=== PATIENT | male | born 1980 | race American Indian/Alaskan Native ===

== ENCOUNTER 2018-06-05 19:36 | Emergency (ER) | payer SELFPAY ==
--- NOTE | 2018-06-05 19:39 | ED PDOC ---
Arrival/HPI - General Time Seen by Provider: 06/05/18 19:39 Historian: Patient - History of Present Illness Narrative History of Present Illness (Text): 06/05/18 19:39 37 y/o male, no significant pmh, penicillin allergy, c/o painful lump on the left sided facial region on and off x 2 weeks. Pt. stated that it started off as a small pimple, been growing for the past 2 days, started to oozing, no fever or chills, no night sweat, no dizziness, no headache, no neck pain, no facial swelling, no palpitation, no other medical or psychological complaints. Past Medical History - Provider Review Nursing Documentation Reviewed: Yes Family/Social History - Physician Review Nursing Documentation Reviewed: Yes Family/Social History: Unknown Family HX Allergies/Home Meds Allergies/Adverse Reactions: Allergies Penicillins Allergy (Verified 06/05/18 19:43) RASH Review of Systems - Review of Systems Constitutional: absent: Fatigue, Fevers Eyes: absent: Vision Changes ENT: absent: Hearing Changes Respiratory: absent: SOB, Cough Cardiovascular: absent: Chest Pain Gastrointestinal: absent: Abdominal Pain, Nausea, Vomiting Skin: Skin Lesions, Abscess. absent: Rash, Pruritis, Laceration, Ulcer, Cellulitis Neurological: absent: Headache, Dizziness Psychiatric: absent: Anxiety, Depression, Suicidal Ideation Physical Exam Vital Signs Reviewed: Yes Temperature: Afebrile Blood Pressure: Normal Pulse: Regular Respiratory Rate: Normal Appearance: Positive for: Well-Appearing, Non-Toxic, Comfortable Pain Distress: Moderate Mental Status: Positive for: Alert and Oriented X 3 - Systems Exam Head: Present: Atraumatic, Normocephalic Pupils: Present: PERRL Extroacular Muscles: Present: EOMI Conjunctiva: Present: Normal Mouth: Present: Moist Mucous Membranes Neck: Present: Normal Range of Motion Respiratory/Chest: Present: Clear to Auscultation, Good Air Exchange. No: Respiratory Distress, Accessory Muscle Use Cardiovascular: Present: Regular Rate and Rhythm, Normal S1, S2. No: Murmurs Abdomen: No: Tenderness, Distention, Peritoneal Signs Back: Present: Normal Inspection Upper Extremity: Present: Normal Inspection. No: Cyanosis, Edema Lower Extremity: Present: Normal Inspection. No: Edema Neurological: Present: GCS=15, CN II-XII Intact, Speech Normal Skin: Present: Warm, Dry, Rashes (lt. sided facial region visible approx. [id number] fluctuant abscess with no cellulitis or streaking, no ulcers, abscess region is outside of the triangle region, no regional lymphenapathy. ), Normal Color Psychiatric: Present: Alert, Oriented x 3, Normal Insight, Normal Concentration Medical Decision Making ED Course and Treatment: 06/05/18 19:58 -cleocin/motrin -will I&D 06/05/18 20:03 Procedure: Incision & Drainage Performed by the emergency provider Indication: Abscess Location: lt. sided facial region Preparation: The area was prepped and draped in the usual sterile fashion and was cleansed with normal saline 1000cc. Local infiltration of Lidocaine 1% with 0.5cc was used for anesthesia. Procedure: The most fluctuant portion of the abscess was incised with a #11 scalpel approx. 0.5cm. Approximately 2 mL of purulant abscess drained, irrigated with 20cc of saline, no wound culture was obtained. The abscess was packed 1/4" iodofoam. A dressing was applied by sc with gauze and tape. Post-Procedure: On exam the abscess is notably fluctuancy resolved but there is small empty pouch skin noted with abscess resolved. The patient tolerated the procedure well, and there were no complications. Total procedure 20 minutes Cultured: NO, empiric treatment. 06/05/18 20:25 -pt. feels much better, advised to return to the ER in 2 days or general surgeon/siding mechanic for wound check/packing change. -Discharge home with cleocin, motrin, keep the dressing dry and clean, return to the ER in 2 days for wound check and packing change, follow up with your own pmd and general surgeon within 3 days, return to the ER for any new or worsening signs or symptoms. - PA / SEWAGE SCREEN OPERATOR / Resident Statement /DO has reviewed & agrees with the documentation as recorded. Disposition/Present on Arrival - Present on Arrival Any Indicators Present on Arrival: No History of DVT/PE: No History of Uncontrolled Diabetes: No Urinary Catheter: No History of Decub. Ulcer: No - Disposition Have Diagnosis and Disposition been Completed?: Yes Diagnosis: Acute abscess of face Disposition: HOME/ ROUTINE Disposition Time: 19:59 Patient Plan: Discharge Patient Problems: Current Active Problems Problem Status Onset Acute abscess of face Acute Condition: GOOD Additional Instructions: -Discharge home with cleocin, motrin, keep the dressing dry and clean, return to the ER in 2 days for wound check and packing change, follow up with your own pmd and general surgeon within 3 days, return to the ER for any new or worsening signs or symptoms. Prescriptions: Clindamycin [Cleocin] 300 mg PO QID PRN #40 cap PRN Reason: Other Ibuprofen [Motrin Tab] 600 mg PO QID PRN #30 tab PRN Reason: Other Referrals: Urmila Schilling MD [Staff Provider] - Follow up with primary Jesus Amaya MD [Staff Provider] - Follow up with primary [facility] at [facility] [place] [Outside] - Follow up with primary Forms: WORK NOTE
[2018-06-05] MEDS ORDERED: Lidocaine 1% 5ml Abboject IJ STA (19:55)
[2018-06-05 21:38] VITALS: BP 121/72; PULSE 72; RESP 18; TEMP 98.7; O2SAT 96
== END 2018-06-05 20:39 | disposition home or self-care (01) ==
LOC: ED 19:36
DX: L02.01 Cutaneous abscess of face (principal)

== ENCOUNTER 2018-06-07 15:42 | Emergency (ER) | payer OTHER ==
--- NOTE | 2018-06-07 16:36 | ED PDOC ---
Arrival/HPI - General Time Seen by Provider: 06/07/18 15:44 Historian: Patient - History of Present Illness Narrative History of Present Illness (Text): 06/07/18 16:32 37 y/o male, pmh including facial abscess, on the cleocin, here for the wound check s/p I&D by me about 3 days ago (which i told him to come back in 2 days with keeping the wound dry and clean) which he stated that he feels better except he removed the packing and dressing 2 days ago by himself without seeing by any medical professional. Pt. stated that he is back for wound check and packing change, no fever or chills, swelling is much better than 3 days ago, no night sweat, no change in hearing. Past Medical History - Provider Review Nursing Documentation Reviewed: Yes - Cardiac Hx Cardiac Disorders: No - Pulmonary Hx Respiratory Disorders: No - Neurological Hx Neurological Disorder: No - HEENT Hx HEENT Disorder: No - Renal Hx Renal Disorder: No - Endocrine/Metabolic Hx Endocrine Disorders: No - Hematological/Oncological Hx Blood Disorders: No - Integumentary Hx Dermatological Disorder: Yes Other/Comment: ABSCESS - Musculoskeletal/Rheumatological Hx Musculoskeletal Disorders: No - Gastrointestinal Hx Gastrointestinal Disorders: No - Genitourinary/Gynecological Hx Genitourinary Disorders: No - Psychiatric Hx Psychophysiologic Disorder: Yes Hx Schizophrenia: Yes Hx Substance Use: No - Surgical History Other/Comment: SKIN R/T ABSCESS Family/Social History - Physician Review Nursing Documentation Reviewed: Yes Family/Social History: Unknown Family HX Smoking Status: Heavy Smoker > 10 Cigarettes Daily Hx Alcohol Use: Yes Hx Substance Use: No Allergies/Home Meds Allergies/Adverse Reactions: Allergies Penicillins Allergy (Verified 06/05/18 19:43) RASH Review of Systems - Review of Systems Constitutional: absent: Fatigue, Fevers Eyes: absent: Vision Changes ENT: absent: Hearing Changes Respiratory: absent: SOB, Cough Cardiovascular: absent: Chest Pain Gastrointestinal: absent: Abdominal Pain, Nausea, Vomiting Musculoskeletal: absent: Arthralgias, Back Pain Skin: Skin Lesions, Abscess. absent: Rash, Pruritis, Laceration, Ulcer, Cellulitis Neurological: absent: Headache, Dizziness Psychiatric: absent: Anxiety, Depression, Suicidal Ideation Physical Exam Vital Signs Reviewed: Yes Temperature: Afebrile Blood Pressure: Normal Pulse: Regular Respiratory Rate: Normal Appearance: Positive for: Well-Appearing, Non-Toxic, Comfortable Pain Distress: Mild Mental Status: Positive for: Alert and Oriented X 3 - Systems Exam Head: Present: Atraumatic, Normocephalic Pupils: Present: PERRL Extroacular Muscles: Present: EOMI Conjunctiva: Present: Normal Mouth: Present: Moist Mucous Membranes Neck: Present: Normal Range of Motion Respiratory/Chest: Present: Clear to Auscultation, Good Air Exchange. No: Respiratory Distress, Accessory Muscle Use Cardiovascular: Present: Regular Rate and Rhythm, Normal S1, S2. No: Murmurs Abdomen: No: Tenderness, Distention, Peritoneal Signs Back: Present: Normal Inspection Upper Extremity: Present: Normal Inspection. No: Cyanosis, Edema Lower Extremity: Present: Normal Inspection. No: Edema Neurological: Present: GCS=15, CN II-XII Intact, Speech Normal, Motor Func Grossly Intact, Gait Normal, Memory Normal Skin: Present: Warm, Dry, Rashes (Lt. facial wound with abscess incision wound noted and the packing is missing, no facial cellulitis or streaking but there is a new abscess approx. 1cm diameter fluctuant abscess noted, the initial incision site is closed which causing more drainage, no regional lymphenapathy. ), Normal Color Psychiatric: Present: Alert, Oriented x 3, Normal Insight, Normal Concentration Medical Decision Making ED Course and Treatment: 06/07/18 16:44 -Pt. remove the dressing too early including packing, causing the incision site failure to drain, will I&D the new onset of abscess less than 1cm diameter. Procedure: Incision & Drainage Performed by the emergency provider Indication: Abscess Location: lt. facial Preparation: The area was prepped and draped in the usual sterile fashion and was cleansed with . Local infiltration of Lidocaine 1% without Epi 0.5cc was used for anesthesia. Procedure: The most fluctuant portion of the abscess was incised with a #11 scalpel. Approximately 1 mL of abscess was obtained. The abscess was packed 1/4 iodofoam. A dressing was applied by the RN. Post-Procedure: On exam the abscess is notably abscess resolvedt. The patient tolerated the procedure well, and there were no complications. Cultured: { NO} 06/07/18 17:16 -Pt. feels much better, will discharge home. -Discharge home with education on continue the cleocin at home, return to the Er for wound check and packing change in 2 days or go see the pmd/turret lathe tender/mechanical manufacturing engineer in 2 days, keep the dressing dry and clean for 2 days, return to the ER for any new or worsening signs or symptoms. - PA / FORK ASSEMBLER / Resident Statement MD/DO has reviewed & agrees with the documentation as recorded. Disposition/Present on Arrival - Present on Arrival Any Indicators Present on Arrival: No History of DVT/PE: No History of Uncontrolled Diabetes: No Urinary Catheter: No History of Decub. Ulcer: No History Surgical Site Infection Following: None - Disposition Have Diagnosis and Disposition been Completed?: Yes Diagnosis: Facial abscess, Wound check, abscess Disposition: HOME/ ROUTINE Disposition Time: 17:18 Patient Plan: Discharge Condition: GOOD Additional Instructions: -Discharge home with education on continue the cleocin at home, return to the Er for wound check and packing change in 2 days or go see the pmd/turret lathe tender/mechanical manufacturing engineer in 2 days, keep the dressing dry and clean for 2 days, return to the ER for any new or worsening signs or symptoms. Referrals: Jesus Bran MD [Staff Provider] - Follow up with primary Umair Braxton MD [Medical Doctor] - Follow up with primary at [facility] [Outside] - Follow up with primary Forms: WORK NOTE
[2018-06-07 16:39] VITALS: RESP 18; TEMP 98; O2SAT 98
[2018-06-07 17:48] VITALS: BP 122/76; PULSE 78
== END 2018-06-07 17:10 | disposition home or self-care (01) ==
LOC: ED 15:42
DX: L02.01 Cutaneous abscess of face (principal)

== ENCOUNTER 2018-09-16 19:06 | Emergency (ER) | payer SELFPAY ==
[2018-09-16 19:24] VITALS: BMI 25.0
[2018-09-16 19:28] VITALS: RESP 18; TEMP 98.6
--- NOTE | 2018-09-16 20:33 | ED PDOC ---
Arrival/HPI - General Chief Complaint: Abnormal Skin Integrity Time Seen by Provider: 09/16/18 19:15 Historian: Patient - History of Present Illness Narrative History of Present Illness (Text): 09/16/18 20:33 A 37 year old male presents to the emergency department complaining of abscess to posterior scalp since last night. Patient reports placing creams, baking soda, and hydrogen peroxide to abscess, however has had no relief. Mentions having surgery to area on scalp, performed some time ago, however did not state what the surgery was for. Patient denies any fever, or any other complaints at this time. No PMD Time/Duration: 24 hours (last night) Past Medical History - Provider Review Nursing Documentation Reviewed: Yes - Infectious Disease Hx of Infectious Diseases: None - Cardiac Hx Cardiac Disorders: No - Pulmonary Hx Respiratory Disorders: No - Neurological Hx Neurological Disorder: No - HEENT Hx HEENT Disorder: No - Renal Hx Renal Disorder: No - Endocrine/Metabolic Hx Endocrine Disorders: No - Hematological/Oncological Hx Blood Disorders: No - Integumentary Hx Dermatological Disorder: Yes Other/Comment: ABSCESS - Musculoskeletal/Rheumatological Hx Musculoskeletal Disorders: No - Gastrointestinal Hx Gastrointestinal Disorders: No - Genitourinary/Gynecological Hx Genitourinary Disorders: No - Psychiatric Hx Psychophysiologic Disorder: Yes Hx Schizophrenia: Yes Hx Substance Use: No - Surgical History Other/Comment: SKIN R/T ABSCESS - Anesthesia Hx Anesthesia: No Family/Social History - Physician Review Nursing Documentation Reviewed: Yes Family/Social History: No Known Family HX Smoking Status: Heavy Smoker > 10 Cigarettes Daily Hx Alcohol Use: Yes Hx Substance Use: No Allergies/Home Meds Allergies/Adverse Reactions: Allergies Penicillins Allergy (Verified 06/05/18 19:43) RASH Review of Systems - Physician Review All systems were reviewed & negative as marked: Yes - Review of Systems Constitutional: absent: Fevers, Other (no head trauma/injuries.) Skin: Abscess (abscess to posterior scalp bilaterally) Physical Exam - Physical Exam Narrative Physical Exam (Text): Gen: VS reviewed, alert, well developed, well nourished, nontoxic, mild distress. ENT: normal pharynx. Eye: EOMI, PERRL. Neck: no JVD, supple, no adenopathy. CV: regular rate, regular rhythm, no rubs, no murmur, no gallops, S1, S2, pulses equal and strong. Pulm: no distress, clear to auscultation, no wheeze, no rhonchi, breath sounds equal, no rales. Abd: soft, nontender, no guarding, no rebound, no rigidity, normal bowel sounds. Ext: no edema. Skin: multiple fluctuating tender lesions to posterior scalp bilaterally, no active drainage. Psych: responds appropriately to questions, normal affect. Neuro: oriented x 3, CN2-12 intact grossly, motor intact, sensation intact. Vital Signs Reviewed: Yes Vital Signs Temp Pulse Resp Pulse Ox 09/16/18 19:25 98.6 F 88 18 99 Temperature: Afebrile Pulse: Regular Respiratory Rate: Normal Appearance: Positive for: Well-Appearing, Non-Toxic, Comfortable Pain Distress: None Mental Status: Positive for: Alert and Oriented X 3 Medical Decision Making ED Course and Treatment: 09/16/18 20:35 Impression: 37 year old male with abscess to back of scalp. Plan: -- Reassess and disposition Progress Notes: 09/16/18 21:25 certified surgical first assistant at bedside for scalp lesion management 09/16/18 21:50 multiple lesions were drained by the certified surgical first assistant, outpt follow up recommended with po abx. patient ok for dc. - Scribe Statement The provider has reviewed the documentation as recorded by the Rios Oliva Provider Scribe Attestation: All medical record entries made by the Maguiibpatricia were at my direction and personally dictated by me. I have reviewed the chart and agree that the record accurately reflects my personal performance of the history, physical exam, medical decision making, and the department course for this patient. I have also personally directed, reviewed, and agree with the discharge instructions and disposition. Disposition/Present on Arrival - Present on Arrival Any Indicators Present on Arrival: No History of DVT/PE: No History of Uncontrolled Diabetes: No Urinary Catheter: No History of Decub. Ulcer: No History Surgical Site Infection Following: None - Disposition Have Diagnosis and Disposition been Completed?: Yes Diagnosis: Scalp abscess Disposition: HOME/ ROUTINE Disposition Time: 21:51 Patient Plan: Discharge Condition: STABLE Discharge Instructions (ExitCare): Skin Abscess Prescriptions: Clindamycin [Cleocin] 300 mg PO QID 7 Days #28 cap Referrals: PCP,NO [Primary Care Provider] - [facility] with [facility] [Outside] - Follow up with primary [facility] at [facility] [place] [Outside] - Follow up with primary Forms: Room Choice (Libyan)
[2018-09-16] MEDS ORDERED: Lidocaine 1%/Epinephrine 1:100000 30 ml vial IJ ONE (20:40)
[2018-09-16] MEDS ORDERED: HYDROmorphone 0.5 mg/0.5 ml ISec IM STA (20:40)
[2018-09-16] MEDS ORDERED: Morphine 4 mg/ml ISec IM STA (20:47)
--- NOTE | 2018-09-16 21:57 | PCM.PROC ---
Incision and Drainage - Time Time Performed: 21:54 - Time Out Time Out: Side verified, Site verified, Patient ID confirmed, Sterile procedures obs. - Procedure Procedure-Incision & Drainage: of the posterior scalp - Consent obtained Consent obtained: Verbal - Performed by Performed by: Mid-level Provider - Indications Indications: Cutaneous abscess - Contraindications Contraindications: None - Location Location: Right, Left, Superior, Inferior, Skin abscess - Dimensions Dimensions Length cm: L superior [id number], L middle [id number], L lower [id number] Dimensions width cm: R lower [id number] - Anesthetic Technique Anesthetic Technique: Local - Anesthetic Anesthetic: Lidocaine 1% w/epi - Systemic Analgesia Systemic Analgesia: Morphine - Procedure Procedure: Usual prep and drape, Ultrasound guidance util., # scalpel used - Drained Drained: ml pus (20) - Complications Complications: None
[2018-09-16 21:59] VITALS: BP 114/62; PULSE 82; O2SAT 100
== END 2018-09-16 21:58 | disposition home or self-care (01) ==
LOC: ED 19:06
DX: L02.811 Cutaneous abscess of head [any part, except face] (principal); F17.210 Nicotine dependence, cigarettes, uncomplicated; F20.9 Schizophrenia, unspecified
CPT/HCPCS: 10060; 96372; 99282; J2270

== ENCOUNTER 2018-11-07 21:48 | Emergency (ER) | payer SELFPAY ==
[2018-11-07 21:48] VITALS: BMI 25.0
[2018-11-07 22:05] VITALS: TEMP 98.2
[2018-11-07 22:12] LABS: BASO # 0.05 K/mm3 (0.0-2.0); BASO % 0.6 % (0.0-3.0); EOS # 0.3 (0.0-0.7); EOS % 4.1 % (1.5-5.0); HEMOGLOBIN 13.6 g/dL (14.0-18.0); LYMPH # 2.9 (1.2-3.4); LYMPH % 34.5 % (22.0-35.0); MEAN CELL VOLUME 90.1 fl (80.0-105.0); MEAN CORPUSCULAR HGB CONC 33.3 g/dl (31.0-37.0); MONO # 0.4 (0.1-0.6); MONO % 4.6 % (1.0-6.0); RBC 4.54 10^6/uL (3.5-6.1); RED CELL DISTRIBUTION WIDTH 13.2 % (11.5-14.5); WHITE BLOOD COUNT 8.4 10^3/uL (4.5-11.0)
--- NOTE | 2018-11-07 22:13 | ED PDOC ---
Arrival/HPI - General Chief Complaint: Chest Pain Time Seen by Provider: 11/07/18 21:51 Historian: Patient - History of Present Illness Narrative History of Present Illness (Text): 11/07/18 21:51 Mariel Ortez is a 37 year old male smoker, with a past medical history of alcohol abuse, major depressive disorder, PTSD, schizophrenia, who presents to the emergency department complaining of right sided chest pain that radiates into the right shoulder intermittently for 1 month. Patient states pain began today after putting his dishes away from a meal. Patient describes pain as tightness, sharpness. and as a "muscle pain". Patient notes pain is worsened with cough and breathing. Patient admits to drinking alcohol for pain with no improvement. Patient informs taking Tylenol two days ago with some improvement. Patient informs taking Zyprexa for anxiety. 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 Patient denies any cardiac fhx or past medical history of hypertension. Patient denies fevers, chills, headache, dizziness, shortness of breath, dyspnea on exertion, cough, abdominal pain, nausea, vomiting, diarrhea, back pain, neck pain, or any other complaint. Time/Duration: < month Symptom Course: Intermittent Quality: Tightness, Stabbing (Sharp) Activities at Onset: Light Context: Home Past Medical History - Provider Review Nursing Documentation Reviewed: Yes - Infectious Disease Hx of Infectious Diseases: None - Cardiac Hx Cardiac Disorders: No - Pulmonary Hx Respiratory Disorders: No - Neurological Hx Neurological Disorder: No - HEENT Hx HEENT Disorder: No - Renal Hx Renal Disorder: No - Endocrine/Metabolic Hx Endocrine Disorders: No - Hematological/Oncological Hx Blood Disorders: No - Integumentary Hx Dermatological Disorder: Yes Other/Comment: ABSCESS - Musculoskeletal/Rheumatological Hx Falls: No - Gastrointestinal Hx Gastrointestinal Disorders: No - Genitourinary/Gynecological Hx Genitourinary Disorders: No - Psychiatric Hx Anxiety: Yes Hx Depression: Yes Hx Post Traumatic Stress Disorder: Yes Hx Schizophrenia: Yes Hx Substance Use: Yes - Surgical History Other/Comment: SKIN R/T ABSCESS - Anesthesia Hx Anesthesia: Yes Hx Anesthesia Reactions: No Family/Social History - Physician Review Nursing Documentation Reviewed: Yes Family/Social History: No Known Family HX. denies: CAD/[place] Smoking Status: Heavy Smoker > 10 Cigarettes Daily Hx Alcohol Use: Yes Hx Substance Use: Yes Allergies/Home Meds Allergies/Adverse Reactions: Allergies Penicillins Allergy (Verified 11/07/18 21:55) RASH Home Medications: Home Meds Medication Instructions Recorded Confirmed Olanzapine [Zyprexa] 20 mg PO DAILY 10/26/18 11/07/18 Review of Systems - Physician Review All systems were reviewed & negative as marked: Yes - Review of Systems Constitutional: absent: Fevers, Night Sweats Respiratory: absent: SOB, Cough Cardiovascular: Chest Pain. absent: DUMONT Gastrointestinal: absent: Abdominal Pain, Diarrhea, Nausea, Vomiting Musculoskeletal: Myalgias (right shoulder pain). absent: Back Pain, Neck Pain Neurological: absent: Headache, Dizziness (right sided chest pain radiating to right shoulder) Physical Exam Vital Signs Reviewed: Yes Vital Signs Temp Pulse Resp BP Pulse Ox 11/07/18 21:56 98.2 F 89 18 127/75 98 Temperature: Afebrile Blood Pressure: Normal Pulse: Regular Respiratory Rate: Normal Appearance: Positive for: Well-Appearing, Non-Toxic, Comfortable Pain Distress: None Mental Status: Positive for: Alert and Oriented X 3 - Systems Exam Head: Present: Atraumatic, Normocephalic Pupils: Present: PERRL Extroacular Muscles: Present: EOMI Conjunctiva: Present: Normal Mouth: Present: Moist Mucous Membranes Neck: Present: Normal Range of Motion Respiratory/Chest: Present: Clear to Auscultation, Good Air Exchange. No: Respiratory Distress, Accessory Muscle Use, Tender to Palpation (No tenderness to palpation of anterior chest wall) Cardiovascular: Present: Regular Rate and Rhythm, Normal S1, S2. No: Murmurs Abdomen: No: Tenderness, Distention, Peritoneal Signs Breast/Axillary: Present: Tender to Palpation (Slight tenderness to palpation to right axilla) Back: Present: Normal Inspection Upper Extremity: Present: Normal Inspection, Normal ROM (Patient able to abduct beyond 90 degrees). No: Cyanosis, Edema Lower Extremity: Present: Normal Inspection. No: Edema Neurological: Present: GCS=15, CN II-XII Intact, Speech Normal Skin: Present: Warm, Dry, Normal Color. No: Rashes Psychiatric: Present: Alert, Oriented x 3, Normal Insight, Normal Concentration Medical Decision Making ED Course and Treatment: 11/07/18 21:51 Impression: Patient is a 37 year old male with no cardiac family history who presents to the Emergency department complaining of right sided chest pain radiating to the right shoulder. Differential Diagnosis included but are not limited to: Plan: -- Labs -- Toradol -- Reassess and disposition Prior Visits: Notes and results from previous visits were reviewed. Progress Notes: - RAD Interpretation Narrative RAD Interpretations (Text): 11/07/18 23:31 Reviewed Chest X-Ray: Normal. No focal consolidations or focal infiltrates. Prominent vascular markings noted. Calculation Clerk: ED Physician - Medication Orders Current Medication Orders: Discontinued Medications Ketorolac Tromethamine (Toradol) 60 mg IM STAT STA Stop: 11/07/18 22:04 Ketorolac Tromethamine (Toradol) 30 mg IVP STAT STA Stop: 11/07/18 22:04 - Scribe Statement The provider has reviewed the documentation as recorded by the Scribe Gurwinder Barrera All medical record entries made by the Scribe were at my direction and personally dictated by me. I have reviewed the chart and agree that the record accurately reflects my personal performance of the history, physical exam, medical decision making, and the department course for this patient. I have also personally directed, reviewed, and agree with the discharge instructions and disposition. Disposition/Present on Arrival - Present on Arrival Any Indicators Present on Arrival: No History of DVT/PE: No History of Uncontrolled Diabetes: No Urinary Catheter: No History of Decub. Ulcer: No History Surgical Site Infection Following: None - Disposition Have Diagnosis and Disposition been Completed?: Yes Diagnosis: Musculoskeletal chest pain, Shoulder pain Disposition: HOME/ ROUTINE Disposition Time: 23:21 Patient Plan: Discharge Discharge Instructions (ExitCare): Chest Pain (ED) Print Language: GREENLANDIC Additional Instructions: All medical record entries made by the Scribe were at my direction and personally dictated by me. I have reviewed the chart and agree that the record accurately reflects my personal performance of the history, physical exam, medical decision making, and the department course for this patient. I have also personally directed, reviewed, and agree with the discharge instructions and disposition. Please apply patch every 12 hours for muscle relief Prescriptions: Ibuprofen [Motrin] 600 mg PO Q6H #12 tab Lidocaine 5% [Lidoderm] 5 % TP Q12 #5 patch Referrals: Julienne Barger MD [Medical Doctor] - Follow up with primary [facility] [place] [Outside] - Follow up with primary Forms: [facility] (Lithuanian), WORK NOTE
[2018-11-07 22:23] LABS: ALBUMIN 3.9 g/dL (3.0-4.8); BLOOD UREA NITROGEN 17 mg/dL (7-21); CALCIUM 8.9 mg/dL (8.4-10.5); GFR NON-AFRICAN AMERICAN > 60
[2018-11-07 22:24] LABS: ALT/SGPT 10 U/L (7-56); AST/SGOT 21 U/L (17-59)
[2018-11-07 22:35] LABS: TROPONIN I < 0.01 ng/mL
[2018-11-07 23:43] VITALS: BP 124/79; PULSE 68; RESP 17; O2SAT 97
--- NOTE | 2018-11-08 09:05 | RAD ---
Date of service: 11/07/2018 HISTORY: chest pain COMPARISON: No prior. FINDINGS: LUNGS: No active pulmonary disease. PLEURA: No significant pleural effusion identified, no pneumothorax apparent. CARDIOVASCULAR: No aortic atherosclerotic calcification present. Normal cardiac size. No pulmonary vascular congestion. OSSEOUS STRUCTURES: No significant abnormalities. VISUALIZED UPPER ABDOMEN: Normal. OTHER FINDINGS: None. IMPRESSION: No active disease.
--- NOTE | 2018-11-08 09:38 | CARD ---
APPROVED REPORT Date of service: 11/07/2018 EKG Measurement Heart [id number] <Conclusion> Normal sinus rhythm Non Specific ST-T Changes.
== END 2018-11-07 23:37 | disposition home or self-care (01) ==
LOC: ED 21:48
DX: R07.89 Other chest pain (principal); M25.511 Pain in right shoulder
CPT/HCPCS: 71045; 80053; 83735; 84484; 85025; 93005; 96374; 99283; J1885

== ENCOUNTER 2019-01-26 20:40 | Emergency (ER) | payer MEDICAID ==
[2019-01-26 20:40] VITALS: BMI 25.0
[2019-01-26 21:37] VITALS: BP 118/66; RESP 18
--- NOTE | 2019-01-26 22:05 | ED PDOC ---
Arrival/HPI - General Chief Complaint: Abnormal Skin Integrity Time Seen by Provider: 01/26/19 20:41 Historian: Patient - History of Present Illness Narrative History of Present Illness (Text): 01/27/19 00:30 38-year-old male presents to emergency room complaining of abscess to the back of his head which has been present for the past few days. She states that he has had previous abscesses to the back of his head which required incision and drainage in the past. Otherwise he reports no fever, chills, headache, dizziness, nausea, vomiting, neck pain. Patient has no additional complaints. Past Medical History - Infectious Disease Hx of Infectious Diseases: None - Tetanus Immunization Tetanus Immunization: Up to Date - Cardiac Hx Cardiac Disorders: No - Pulmonary Hx Respiratory Disorders: No - Neurological Hx Neurological Disorder: No - HEENT Hx HEENT Disorder: No - Renal Hx Renal Disorder: No - Endocrine/Metabolic Hx Endocrine Disorders: No - Hematological/Oncological Hx Blood Disorders: No - Integumentary Hx Dermatological Disorder: Yes Hx Basal Cell Carcinoma: No Hx Maddox: No Hx Cellulitis: No Hx Eczema: No Hx Melanoma: No Hx Psoriasis: No Hx Squamous Cell Carcinoma: No Other/Comment: ABSCESS - Musculoskeletal/Rheumatological Hx Musculoskeletal Disorders: No Hx Falls: No - Gastrointestinal Hx Gastrointestinal Disorders: No - Genitourinary/Gynecological Hx Genitourinary Disorders: No - Psychiatric Hx Anxiety: Yes Hx Depression: Yes Hx Post Traumatic Stress Disorder: Yes Hx Schizophrenia: Yes Hx Substance Use: Yes - Surgical History Other/Comment: SKIN R/T ABSCESS - Anesthesia Hx Anesthesia: No Hx Anesthesia Reactions: No Hx Malignant Hyperthermia: No Family/Social History Family/Social History: No Known Family HX Smoking Status: Current Some Days Smoker Hx Alcohol Use: Yes Hx Substance Use: Yes Allergies/Home Meds Allergies/Adverse Reactions: Allergies Penicillins Allergy (Verified 12/04/18 13:10) RASH Home Medications: Home Meds Medication Instructions Recorded Confirmed Olanzapine [Zyprexa] 20 mg PO DAILY 10/26/18 12/04/18 Review of Systems - Review of Systems Constitutional: absent: Fatigue, Fevers ENT: absent: Sore Throat, Rhinorrhea, Sinus Congestion Respiratory: absent: SOB, Cough Musculoskeletal: absent: Arthralgias, Back Pain, Neck Pain Skin: Abscess. absent: Rash, Skin Lesions, Laceration Neurological: absent: Headache, Dizziness Physical Exam Vital Signs Temp Pulse Resp BP Pulse Ox 01/26/19 21:33 98.1 F 90 18 118/66 100 Temperature: Afebrile Blood Pressure: Normal Pulse: Regular Respiratory Rate: Normal Appearance: Positive for: Well-Appearing, Non-Toxic, Comfortable Pain Distress: None Mental Status: Positive for: Alert and Oriented X 3 - Systems Exam Head: Present: Atraumatic, Normocephalic Pupils: Present: PERRL Extroacular Muscles: Present: EOMI Conjunctiva: Present: Normal Ears: Present: Normal, NORMAL TM Mouth: Present: Moist Mucous Membranes Pharnyx: Present: Normal. No: ERYTHEMA, EXUDATE Neck: Present: Normal Range of Motion. No: Meningeal Signs, Lymphadenopathy Back: Present: Normal Inspection Upper Extremity: Present: Normal Inspection. No: Cyanosis, Edema Lower Extremity: Present: Normal Inspection. No: Edema Neurological: Present: GCS=15, CN II-XII Intact, Speech Normal, Motor Func Grossly Intact, Normal Sensory Function, Gait Normal Skin: Present: Warm, Dry, Normal Color, Abscess (+4 cm erythematous tender fluctuant abscess to the L occipital scalp. +1.5 cm erythematous tender fluctuant abscess to the R occipital scalp. ). No: Rashes Psychiatric: Present: Alert, Oriented x 3, Normal Insight, Normal Concentration Medical Decision Making ED Course and Treatment: 01/27/19 00:33 Plan : - Clindamycin PO - I&D of abscess Advised to follow up with referral physician in 1-2 days without fail. Advised to take medication as prescribed. Advised to have wound check and packing removed after 2 days. Return to the emergency room at any time for any new or worsening symptoms. Patient states he fully agrees with and understands discharge instructions. States that he agrees with the plan and disposition. Verbalized and repeated discharge instructions and plan. I have given the patient opportunity to ask any additional questions. Procedures - Incision and Drainage Site: L occipital scalp Blade Size: 11 I & D Procedure: betadine prep, sterile drapes applied, sterile dressing applied Progress: 6 cc of yellow purulent material was expressed from the abscess, wound packing was inserted, clean dressing applied, patient tolerated the procedure well. Attempted to drain potential abscess to the R occipital scalp, however upon aspiration with an 18 g needle, only 1 cc of yellow-bloody serosanguineous fluid was removed, therefore I&D was not performed to that area. - PA / TRANSFER KNITTER / Resident Statement MD/DO has reviewed & agrees with the documentation as recorded. Disposition/Present on Arrival - Present on Arrival Any Indicators Present on Arrival: No History of DVT/PE: No History of Uncontrolled Diabetes: No Urinary Catheter: No History of Decub. Ulcer: No History Surgical Site Infection Following: None - Disposition Have Diagnosis and Disposition been Completed?: Yes Diagnosis: Abscess Disposition: HOME/ ROUTINE Disposition Time: 22:00 Patient Plan: Discharge Condition: STABLE Discharge Instructions (ExitCare): Skin Abscess, Abscess Incision and Drainage (DC) Additional Instructions: Thank you for letting us take care of you today. You were treated for abscess. The emergency medical care you received today was directed at your acute symptoms. If you were prescribed any medication, please fill it and take as directed. It may take several days for your symptoms to resolve. Return to the Emergency Department if your symptoms worsen, do not improve, or if you have any other problems. Please contact your doctor in 2 days for re-evaluation and follow up / or call one of the physicians/clinics you have been referred to that are listed on the Patient Visit Information form that is included in your discharge packet. Bring any paperwork you were given at discharge with you along with any medications you are taking to your follow up visit. Our treatment cannot replace ongoing medical care by a primary care provider (PCP) outside of the emergency department. Thank you for allowing the [facility] team to be part of your care today. Prescriptions: Clindamycin [Cleocin] 300 mg PO TID #21 cap Referrals: Urmila Schilling MD [Staff Provider] - Follow up with primary WAYNE,PAT [Primary Care Provider] - Follow up with primary Jerrell Mcintyre MD [Staff Provider] - Follow up with primary Forms: [facility] (Sudanese), WORK NOTE
[2019-01-26 22:29] VITALS: PULSE 85; TEMP 98.7; O2SAT 99
== END 2019-01-26 22:33 | disposition home or self-care (01) ==
LOC: ED 20:40
DX: L02.811 Cutaneous abscess of head [any part, except face] (principal); F20.9 Schizophrenia, unspecified